=== PATIENT | female | born 1945 | race Caucasian/White ===

== ENCOUNTER 2017-12-28 23:55 | Inpatient (IN) | payer MEDICARE ==
[~2017-12-28] VITALS: Ht 162.6 cm; Wt 71.7 kg
[~2017-12-28 23:55] MED LIST: ALPRAZOLAM 0.50.5 M1 PO; CELEXA40 MG PO; COLESTID1 GM PO; COREG6.25 MG PO; FOSAMAX 70 MG T70 M1; GABAPENTIN 100100 MG PO; GABAPENTIN100 MG; GLUCOPHAGE500 MG PO; NORCO 5-325 TA1 EACH PO; NORVASC 5 MG TAB5 MG PO; OMEGA-31000 M1 PO; OMEPRAZOLE 20 M20 MG; PRAVACHOL 20 MG20 M1 PO; REGLAN 10 MG TA10 MG PO; ROBAXIN500 MG PO; WELLBUTRIN SR150 MG PO; XANAX 1 MG TABLE1 MG PO
[2017-12-29] VITALS (10 sets, daily range): BP systolic 131–192; BP diastolic 62–90
[2017-12-29] MEDS ORDERED: XANAX 0.5 MG0.5 MG PO (00:11)
[2017-12-29] MEDS ORDERED: NAMENDA 10 MG T10 MG PO ×2 (00:12→04:25)
[2017-12-29 01:00] LABS: ABSOLUTE EOSINOPHILS 0.2 thou/uL (0.0-0.7); ABSOLUTE LYMPHOCYTES 2.5 thou/uL (0.8-5.3); ABSOLUTE MONOCYTES 0.6 thou/uL (0.0-1.2); ABSOLUTE NEUTROPHILS 4.8 thou/uL (1.6-8.1); BASOPHILS 0.4 %; EOSINOPHILS 2.7 %; HEMATOCRIT 41.2 % (37.0-47.0); LYMPHOCYTES 30.7 %; MCH 29.6 pg (26.0-34.0); MCHC 33.9 g/dL (28.0-37.0); MCV 87.2 fL (80.0-100.0); MONOCYTES 7.3 %; MPV 7.8 fl. (7.2-11.1); NUCLEATED RBCS 0 /100WBC; PLATELET COUNT* 204 thou/uL (150-400); POLYS 58.9 %; RBC 4.72 mil/uL (4.20-5.00); RDW-CV 12.8 % (10.5-14.5); WBC 8.1 thou/uL (4.0-11.0)
[2017-12-29 01:04] LABS: ANION GAP 5 mmol/L (7-16); BUN 14 mg/dL (7-18); CALCIUM 9.7 mg/dL (8.5-10.1); CHLORIDE 101 mmol/L (98-107); CO2 30 mmol/L (21-32); GLUCOSE 131 mg/dL (70-99); POTASSIUM 4.7 mmol/L (3.5-5.1); SODIUM 136 mmol/L (136-145)
[2017-12-29 01:16] LABS: ALBUMIN 3.8 g/dL (3.4-5.0); ALKALINE PHOSPHATASE 69 U/L (46-116); SGOT 19 U/L (15-37); SGPT 15 U/L (30-65); TOTAL BILIRUBIN 0.4 mg/dL (<0.1-1.0); TOTAL PROTEIN 7.4 g/dL (6.4-8.2); TROPONIN-I LEVEL <0.06 ng/mL (<0.06)
[2017-12-29 04:25] LABS: URINE BILIRUBIN NEGATIVE (Negative); URINE BLOOD NEGATIVE (Negative); URINE CLARITY CLEAR; URINE COLOR STRAW; URINE GLUCOSE-RANDOM NEGATIVE (Negative); URINE KETONES NEGATIVE (Negative); URINE LEUKOCYTES-REFLEX NEGATIVE (Negative); URINE NITRITE-REFLEX NEGATIVE (Negative); URINE PROTEIN NEGATIVE (Negative); URINE SPECIFIC GRAVITY <= 1.005 (1.005-1.030); URINE UROBILINOGEN 0.2 E.U./dl (0.2-1.0)
--- NOTE | 2017-12-29 06:38 | NUR ---
RECEIVED REPORT FROM ER NURSE, MILLIE RN, AT 0315. PT ARRIVED TO UNIT VIA CART AT 0331. PT AAOX4, ORIENTED TO ROOM AND CALL LIGHT. PT DENIES CHEST PAIN, VSS, SCDS IN PLACE, PT TRACING SR ON OPERATIONS LEAD. CALL LIGHT WITHIN REACH.
[2017-12-29 06:53] LABS: ABSOLUTE EOSINOPHILS 0.1 thou/uL (0.0-0.7); ABSOLUTE LYMPHOCYTES 2.2 thou/uL (0.8-5.3); ABSOLUTE MONOCYTES 0.4 thou/uL (0.0-1.2); ABSOLUTE NEUTROPHILS 6.3 thou/uL (1.6-8.1); BASOPHILS 0.3 %; EOSINOPHILS 1.1 %; HEMATOCRIT 41.3 % (37.0-47.0); HEMOGLOBIN 13.8 gm/dL (12.0-15.0); LYMPHOCYTES 24.3 %; MCH 29.4 pg (26.0-34.0); MCHC 33.4 g/dL (28.0-37.0); MCV 88.2 fL (80.0-100.0); MONOCYTES 4.9 %; MPV 8.6 fl. (7.2-11.1); NUCLEATED RBCS 0 /100WBC; PLATELET COUNT* 209 thou/uL (150-400); POLYS 69.4 %; RBC 4.68 mil/uL (4.20-5.00); RDW-CV 12.7 % (10.5-14.5)
[2017-12-29 07:08] LABS: ANION GAP 7 mmol/L (7-16); BUN 10 mg/dL (7-18); CALCIUM 8.9 mg/dL (8.5-10.1); CHLORIDE 106 mmol/L (98-107); CO2 29 mmol/L (21-32); GLUCOSE 115 mg/dL (70-99); POTASSIUM 4.5 mmol/L (3.5-5.1); SODIUM 142 mmol/L (136-145)
[2017-12-29 07:09] LABS: TROPONIN-I LEVEL <0.06 ng/mL (<0.06)
--- NOTE | 2017-12-29 07:30 | NUR ---
0730 ASSUMED CARE OF PT. PLEASE SEE DOCUMENTED ASSESSMENT. PT AXOX4. O2 AT 2L PER NC. HR IN THE 80'S, PT IN SINUS RHYTHM. NPO UNTIL SEEN BY CARDIOLOGY. GOALS THIS SHIFT ARE TO: MONITOR HR, POSSIBLY TX TO TELE, MRI HEAD D/T AMS, AND ULTRASOUND OF CAROTIDS, REST/COMFORT, INCREASE ACTIVITY TOLERATED.
--- NOTE | 2017-12-29 09:10 | NUR ---
DR. TORRES HERE ON THE UNIT. NEW ORDERS RCOctavio'Patricio.
--- NOTE | 2017-12-29 09:40 | NUR ---
PT TO MRI VIA W/CHAIR. QUESTIONNAIRE FILLED OUT. PT WILL HAVE MRI HEAD THEN ULTRASOUND OF THE CAROTIDS.
--- NOTE | 2017-12-29 10:00 | NUR ---
RCV'D CALL FROM MRI, PT UNABLE TO TOLERATE MRI D/T PTSD. PAGED DR. LABOY TO GET SEDATIVE. NEW ORDERS RCV'D. RCV'D CALL BACK FROM [facility] IN MRI, PT NO LONGER WILLING TO COMPLETE MRI. YOU CALL SENT TO DR. LABOY.
--- NOTE | 2017-12-29 13:28 | NUR ---
PT HAS MULTIPLE DIETARY RESTRICTIONS, PLACED UNDER COMMENTS FOR DIETARY TO BE AWARE OF.
--- NOTE | 2017-12-29 13:29 | EKG ---
[place] [address] ELECTROCARDIOGRAM REPORT Name: MAKENZIE LOVELL Room: [address] IN [facility].#: [id number] Admission: 12/29/17 Attend Phys: Jimmie Aguirre, Discharge: Date of : 43 Report #: [id number] THIS REPORT FOR: //name// [facility] ED Test Date: 2017-12-29 Test Time: 00:04:29 Pat Name: MAKENZIE LOVELL Department: Room: [facility] Gender: F Package Liner: UNKNOWN : 1945 Requested By: Theodore Wellington Order Number: [id number] MD: Cecilio France Measurements Intervals Bowler Rate: 76 P: 53 UT: 175 QRS: -2 QRSD: 94 T: 65 QT: 380 QTc: 428 Interpretive Statements Sinus rhythm Compared to ECG 11/05/2016 12:06:03 No significant changes Electronically Signed On 12-29-2017 13:28:56 CDT by Cecilio France [email or web address] <ELECTRONICALLY SIGNED> By: Jazzy France MD, [facility] 12/29/17 1328 0004 0004 Jazzy France MD, [facility] /EPI
--- NOTE | 2017-12-29 15:15 | NUR ---
PT RESTING IN BED WATCHING TV. VOICES NO NEEDS. IVF SALINE LOCKED. UP TO BSC W/STANDBY ASSIST.
--- NOTE | 2017-12-29 16:14 | NUR ---
SB[facility] FAXED TO [facility].
--- NOTE | 2017-12-29 16:55 | NUR ---
PT TRANSFERRED TO ROOM 222 VIA W/CHAIR. ALL BELONGINGS SENT W/PT. REPORT GIVEN TO DAVID OJEDA. PT WILL CONTACT HER FAMILY TO LET THEM KNOW SHE MOVED TO A TELE ROOM.
--- NOTE | 2017-12-29 19:42 | NUR ---
PT ARRIVED TO ROOM 222 AT APPROX 1700. PT ORIENTED TO ROOM AND STAFF. SHE DENIES PAIN AT THIS TIME. REVIEWED PREVIOUS RNS CHARTING, THIS RN AGREES WITH CHARTING OF LETY MAGANA RN. PT USING CALL LIGHT APPROPIRLATY , FALL PRECAUTIONS IN PLACE. REPORT GIVEN TO ONCOMING NIGHT RNSABI.
[2017-12-30 00:10] VITALS: BP 143/62
[2017-12-30 04:00] VITALS: BP 146/68
--- NOTE | 2017-12-30 05:20 | NUR ---
PT CARE ASSUMED AFTER REPORT. ASSESSMENT COMPLETE. SR ON MOITOR. NPO FOR CARDS CONSULT, ECHO, AND STRESS TEST. ALSO NEUROLOGY CONSULT TODAY. CALL LIGHT IN REACH. BED IN LOWEST POSITION. PROGRESSING TOWARDS GOALS.
[2017-12-30 07:30] VITALS: BP 130/68
--- NOTE | 2017-12-30 08:56 | NUR ---
VSS, ASSUMED CARE IN THE AM, ASSESSMENT PERFORMED AND CHARTED, FALL PRECAUTIONS IN PLACE AND CALL LIGHT IN REACH, PT IS A&O4 IS UP WITH ONE, TRACING SR ON THE MONITOR, DENIES ANY PAIN AND HER GOAL IS TO COMPLETE ECHO AND STRSS TEST, WILL FOLLOW WITH PLAN OF CARE.
[2017-12-30 15:15] VITALS: BP 127/65
--- NOTE | 2017-12-30 15:57 | NUR ---
Pt was sound asleep when CM went to assess, will f/u later
--- NOTE | 2017-12-30 17:33 | CARDNUC ---
[place] [address] CARDIAC NUCLEAR IMAGING REPORT Name: MAKENZIE LOVELL Room: [address] IN [facility]#: [id number] Admission: 12/29/17 Attend Phys: Jimmie Richards Discharge: Date of : 43 Date of Service: 12/30/17 1733 Report #: [id number] THIS REPORT FOR: //name// APPROVED REPORT Study performed: 12/29/2017 10:52:00 Exam: Nuclear Stress Test Indication: bradycardia, near syncope Patient Location: In-Patient Room #: 222 Stress Tech: Yanet Hill Stress Nurse: Hiral Buckley RN Ht: 5 ft 4 in Wt: 165 lbs BSA: 1.80 m2 BMI: 28.31 Medical History Medical History: Diabetes, Hyperlipidemia, HTN Medications: amlodipine, atorvastatin, colestipol, asa, ntg Allergies: codeine Cardiac Risk Factors: Age, DM, HTN, Hyperlipidemia Exercise History: Sedentary Stress Test Details Stress Test: Pharmacologic stress testing performed using 0.4 mg of regadenoson per 5 mL given IV over 10 seconds. Reason for pharmacologic stress test: physical limitation. Reversal agent Aminophyline 50 mg, given intravenously for headache. HR Resting HR: 63 bpm Max Heart Rate (APMHR): 147 bpm Max HR Achieved: 103 bpm Target HR (85% APMHR): 124 bpm % of APMHR: 70 Recovery HR: 82 bpm BP Resting BP: 139/80 mmHg Max BP: 146/69 mmHg ECG Resting ECG: Sinus Rhythm, normal EKG Stress ECG: Sinus Rhythm, normal EKG ST Change: [place] [address] CARDIAC NUCLEAR IMAGING REPORT Name: MAKENZIE LOEVLL Room: [address]#: [id number] Admission: 12/29/17 Attend Phys: Jimmie Richards Discharge: Date of : 43 Date of Service: 12/30/17 1733 Report #: [id number] Arrhythmia: None Recovery ECG: Sinus Rhythm, normal EKG Recovery ST Change: None Recovery Arrhythmia: None Clinical Reason for Termination: Completed protocol Stress Symptoms: Nausea, Headache Exercise duration: 0 min sec Exercise capacity: 1.0 METs The patient had some nausea and headache felt to be attributed to Lexiscan. She had no significant chest pain with Lexiscan infusion. Nurse Comments Patient complained of nausea and headache and shaking post lexiscan, 50mg aminophylline IV at 1201. Patient states feels better at 1208. Stress ECG Conclusion The baseline 12-lead electrocardiogram showed normal sinus rhythm with no significant ST or T wave abnormalities. EKGs obtained during and post Lexiscan infusion showed sinus rhythm with no significant Mr. T wave changes when compared to baseline. There were no stress-induced arrhythmias. NM EXAM: Myocardial Perfusion REST/STRESS Imaging Protocol: Rest Tc-99m/Stress Tc-99m 1 day Resting Data Rest SPECT myocardial perfusion imaging was performed in supine position 45 minutes following the intravenous injection of 12 mCi of Tc-99m Sestamibi. Time of rest injection: 1025 Date: 12/30/2017 The images were gated to evaluate regional wall motion and calculate left ventricular ejection fraction. Administration Route: IV Administration Site: [facility] Pharmacologic Stress Pharmacologic stress test was performed by injecting Regadenoson 0.4 mg IV push followed by the intravenous injection of 34.8 mCi of Tc-99m Sestamibi. Time of stress injection: 1200 Date: 12/30/2017 Administration Route: IV Administration Site: [place] [address] CARDIAC NUCLEAR IMAGING REPORT Name: MAKENZIE LOVELL Room: [address]#: [id number] Admission: 12/29/17 Attend Phys: Jimmie Richards Discharge: Date of : 43 Date of Service: 12/30/17 1733 Report #: [id number] Gated Stress SPECT was performed 45 minutes after stress injection. The images were gated to evaluate regional wall motion and calculate left ventricular ejection fraction. Prone imaging was performed. Study Quality Study: Good Artifact: No artifact Study Data At rest, the left ventricular ejection fraction was 78%.. Post stress, the left ventricular ejection was 78%.. TID = 1.10. Perfusion Normal left ventricular perfusion. Wall Motion Normal left ventricular wall motion. Nuclear Conclusion ECG Findings: negative for ischemia Clinical Findings: negative for ischemia Nuclear Findings: negative for ischemia Exercise Capacity: not assessed Left Ventricular Function: normal Risk Study: low Myocardial perfusion images show no defect to suggest infarct or ischemia. Left ventricular systolic function was normal on gated studies. This is a low risk study. <Conclusion> The baseline 12-lead electrocardiogram showed normal sinus rhythm with no significant ST or T wave abnormalities. EKGs obtained during and post Lexiscan infusion showed sinus rhythm with no significant Mr. T wave changes when compared to baseline. There were no stress-induced arrhythmias. <ELECTRONICALLY SIGNED> By: Jae Doran MD, FACC 12/30/17 1733 1733 1733 Jae Doran MD, FACC /INF
--- NOTE | 2017-12-30 17:44 | NUR ---
VSS, PT IS PROGRESSING TOWARDS GOAL, PT IS A&O4 ON RA AND IS UP WITH ONE AND IS TRACING SR ON THE MONITOR, PT DENIES ANY PAIN AND HAS BEEN TO UP CHAIR FOR MEALS, PT HAS COMPLETED ECHO AND STRESS TEST, HOURLY ROUNDS COMPLETED AND WILL FOLLOW WITH END OF SHIFT REPORT, FALL PRECAUTIONS IN PLACE AND CALL LIGHT IN REACH.
[2017-12-30 20:00] VITALS: BP 136/61
[2017-12-31] VITALS: BP 118/56
--- NOTE | 2017-12-31 03:41 | NUR ---
ASSUMED PT CRAE AT 1930, PT IS A&OX4, PT IS TRACING NSR ON THE MONITOR, PT DENIES ANY PAIN OR NEEDS AT THIS TIME, PT IS UP STB TO THE BR. BED IN LOW POSITION, CALL LIGHT IN REACH, BED ALARM ON, PT REFUSED HER XANAX THIS SHFIT, STATED SHE DID NOT NEED IT AT THIS TIME. PT SLEPT ON AND OFF THOUGHOUT THE SHIFT. HOURLY ROUNDING COMPELTED FOR PT SAFETY.
[2017-12-31 04:00] VITALS: BP 142/70
--- NOTE | 2017-12-31 07:45 | 2DMMODE ---
[place] [address] 2 D/M-MODE ECHOCARDIOGRAM Name: MAKENZIE LOVELL Room: [address] IN [facility]#: [id number] Admission: 12/29/17 Attend Phys: Jimmie Richards Discharge: Date of : 43 Date of Service: 12/30/17 1715 Report #: [id number] THIS REPORT FOR: //name// APPROVED REPORT Study performed: 12/30/2017 11:37:50 EXAM: Comprehensive 2D, Doppler, and color-flow Echocardiogram Patient Location: In-Patient Room #: 008 Status: routine BSA: 1.80 HR: 72 bpm BP: 130/68 mmHg Rhythm: NSR Other Information Study Quality: Good Indications Bradycardia Chest Pain Near syncope 2D Dimensions LVEF(%): 78.91 (>50%) IVSd: 13.80 (7-11mm) LVOT Diam: 17.67 (18-24mm) LVDd: 37.65 mm PWd: 10.82 (7-11mm) Ascending Ao: 27.96 (22-36mm) LVDs: 20.03 (25-40mm) Aortic Root: 25.61 mm Aguilar's LVEF: 78.91 % Volumes Left Atrial Volume (Systole) LA ESV Index: 22.60 mL/m2 Aortic Valve AoV Peak Juan.: 1.55 m/s AO Peak Gr.: 9.64 mmHg LVOT Max P.18 mmHg AO Mean Gr.: 5.46 mmHg LVOT Mean P.12 mmHg LVOT Max V: 1.60 m/s AO V2 VTI: 34.68 cm LVOT Mean V: 1.04 m/s KENJI (VTI): 2.69 cm2 LVOT V1 VTI: 38.08 [place] [address] 2 D/M-MODE ECHOCARDIOGRAM Name: MAKENZIE LOVELL Room: [address] IN [facility]#: [id number] Admission: 12/29/17 Attend Phys: Jimmie Richards Discharge: Date of : 43 Date of Service: 12/30/17 1715 Report #: [id number] Mitral Valve E/A Ratio: 0.85 MV Decel. Time: 250.70 ms MV E Max Juan.: 0.96 m/s MV PHT: 72.70 ms MVA (PHT): 3.03 cm2 TDI E/Lateral E': 8.73 E/Medial E': 10.67 Medial E' Juan.: 0.09 m/s Lateral E' Juan.: 0.11 m/s Pulmonary Valve PV Peak Juan.: 0.95 m/s PV Peak Gr.: 3.59 mmHg Tricuspid Valve TR Peak Gr.: 25.03 mmHg RVSP: 30.00 mmHg Left Ventricle The left ventricle is normal size. There is normal LV segmental wall motion. There is normal left ventricular wall thickness Left ventricular systolic function is normal. The left ventricular ejection fraction is within the normal range. LVEF is 60-65%. Grade I - abnormal relaxation pattern. Right Ventricle The right ventricle is normal size. The right ventricular systolic function is normal. Atria The left atrium size is normal. The right atrium size is normal. Aortic Valve Mild aortic valve sclerosis. No aortic regurgitation is present. There is no aortic valvular stenosis. Mitral Valve There is mitral annular calcification. There is no mitral valve regurgitation noted. No evidence of mitral valve stenosis. Tricuspid Valve The tricuspid valve is normal in structure. Trace tricuspid regurgitation. The RVSP is 30-35 mmHg[place] [address] 2 D/M-MODE ECHOCARDIOGRAM Name: MAKENZIE LOVELL Aldo Room: [address]#: [id number] Admission: 12/29/17 Attend Phys: Jimmie Richards Discharge: Date of : 43 Date of Service: 12/30/17 1715 Report #: [id number] The pulmonary valve is normal in structure. There is no pulmonic valvular regurgitation. Great Vessels The aortic root is normal in size. IVC is normal in size and collapses with >50% inspiration Pericardium There is no pericardial effusion. <Conclusion> The left ventricle is normal size. There is normal left ventricular wall thickness Left ventricular systolic function is normal. The left ventricular ejection fraction is within the normal range. LVEF is 60-65%. Grade I - abnormal relaxation pattern. The right ventricle is normal size. The left atrium size is normal. Mild aortic valve sclerosis. No aortic regurgitation is present. There is no aortic valvular stenosis. There is mitral annular calcification. There is no mitral valve regurgitation noted. No evidence of mitral valve stenosis. The tricuspid valve is normal in structure. Trace tricuspid regurgitation. The RVSP is 30-35 mmHg. IVC is normal in size and collapses with >50% inspiration There is no pericardial effusion. There is normal LV segmental wall motion. <ELECTRONICALLY SIGNED> By: Ritchie Eugene MD, FACC 12/30/17 1715 171 [id number] Ritchie Eugene MD, FACC /INF
--- NOTE | 2017-12-31 08:00 | CON ---
[address] [address] CONSULTATION Name: MAKENZIE LOVELL Room: [address] IN ..#: [id number] Admission: 12/29/17 Attend Phys: Jimmie Aguirre, Discharge: Date of : 43 Report #: [id number] THIS REPORT FOR: //name// CC: RUDY physician/PCP Jimmie Aguirre DATE OF SERVICE: 12/29/2017 HISTORY OF PRESENT ILLNESS: I was asked by Dr. Aguirre to see this 72-year-old white female in cardiology consultation for evaluation and treatment of a bradycardic episode that occurred in the ER last night. This lady came to the ER after having started memantine or Namenda on last Saturday for memory loss. She has also had difficulty thinking straight. She has had a lot of anxiety. She does have a history of depression. She came to the ER because she was feeling dizzy and confused. She had a discomfort in the back of her head. She was having some flashbacks and memory loss. She does have issues with PTSD, anxiety and depression. In addition to the Namenda, she takes alprazolam 0.5 mg t.i.d. and Wellbutrin 300 mg daily. She also takes Celexa 40 mg daily. In the ER, she was hypertensive. I believe her systolic blood pressure was 190, but I believe was 190/90 was her blood pressure. She does have a history of high blood pressure. She was given nitroglycerin for her high blood pressure and then shortly after getting the nitroglycerin, developed bradycardia. It is not clear that how much she dropped her blood pressure, but she did feel lightheaded and thought she might be going to faint, but she did not faint. She does have a history of multiple episodes of syncope that sound like vasovagal syncope as a teenager. Her EKG was normal. She has not had any troponin elevations. She has not had any further bradycardic episodes. She felt her heart was racing. Additionally, they brought her to the hospital, but she did not have any tachycardia in the ER. She has had negative troponins x 3. Her chest x-ray was normal. A CT of the head was unremarkable as well. That was without contrast. She apparently had a CTA of the chest that was normal also. Her main complaint when she came in the ER was in fact dizziness as well as confusion. She said her right arm was tingling as well. She says she has been under a lot of stress. She was particularly under a lot of stress the day she came in the hospital. She did not have any chest pain or angina. She does have mild dyspnea on exertion, but not inappropriate she says for her level of activity in general condition. She has not had shortness of breath at rest, orthopnea or PND. Occasionally, she gets a little edema above her socks, but nothing otherwise, it is always gone the next day. She has had the dizziness and weakness that occurred last night, but no syncope or near syncope, otherwise. Cardiac risk factors include hypercholesterolemia, but she is on pravastatin. She has not been a smoker. She does have non-insulin dependent diabetes mellitus and high blood pressure. There is family history of TIAs and CVAs, but not clearly heart issues that is not clearly MIs or angina or heart failure. She has not had renal disease. She has not had carotid disease or TIAs or CVAs. She does get pain in her legs when she walks, but it sounds like it is more [facility] [address] [place] [address] CONSULTATION Name: MAKENZIE LOVELL Room: [address]#: [id number] Admission: 12/29/17 Attend Phys: Jimmie Aguirre, Discharge: Date of : 43 Report #: [id number] like arthritis and not claudication. She has had no previous cardiac problems. She has had the above-mentioned psychiatric issues. She does have a history of gastroparesis. She has had a cholecystectomy, tonsillectomy and a throat polyp removed. ALLERGIES: SHE DOES HAVE SEASONAL ALLERGIES AND IS ALLERGIC TO CODEINE. HOME MEDICATIONS: Include alprazolam as above, amlodipine 5 mg daily, Wellbutrin as above, carvedilol 6.25 mg b.i.d., citalopram or Celexa 40 mg daily, colestipol 2 grams b.i.d. for diarrhea, gabapentin 100 mg b.i.d., Namenda 10 mg b.i.d., metformin 500 mg b.i.d. and pravastatin 20 mg daily. REVIEW OF SYSTEMS: Positive for cough, sputum production, shortness of breath with exercise, feeling weak and dizzy but no real syncope, diabetes, gastroparesis, SEASONAL ALLERGIES, CODEINE ALLERGY, PTSD with anxiety and depression, arthritis, dry itchy skin, wearing glasses, decreased hearing, wearing dentures. She says her teeth are in bed condition. Otherwise, review of systems is negative for some 30 different complaints in 14 different system categories including central nervous system, general, respiratory, cardiovascular, endocrine, gastrointestinal, genitourinary, hematologic, lymphatic, allergic, immunologic, psychiatric, musculoskeletal, skin, eyes, ears, nose, mouth, and throat. Please see review of systems form. SOCIAL HISTORY: She is . 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 She does not smoke, drink or use illegal drugs. FAMILY HISTORY: Remarkable for TIAs in her mother and her grandmother did suddenly. PHYSICAL EXAMINATION: GENERAL: She presents as a well-developed, well-nourished white female in no acute distress. VITAL SIGNS: Her pulse was 67, blood pressure is 144/62, respirations 18 and regular, temperature was 98.4. HEENT: Head was atraumatic. Eyes clear. NECK: Supple. There is no jugular venous distention or hepatojugular reflux. Thyroid is not enlarged. There is no adenopathy. SKIN: Warm and dry. Mucous membranes are moist. LUNGS: Clear to auscultation and percussion. HEART: Revealed normal first and second heart sound. There is soft S4. There is no S3. There are no murmurs, rubs, thrills, heaves or gallops. PMI is nondisplaced. ABDOMEN: Soft, flat, nontender, no palpable masses, no organomegaly. EXTREMITIES: Reveal no cyanosis, clubbing or edema. NEUROLOGIC: The patient mentated normally, talked normally and [place] [address] CONSULTATION Name: MAKENZIE LOVELL Aldo Room: [address]#: [id number] Admission: 12/29/17 Attend Phys: Jimmie Aguirre, Discharge: Date of : 43 Report #: [id number] IMPRESSION: 1. Bradycardia that was likely a vasovagal episode. 2. Essential hypertension. 3. Non-insulin dependent diabetes mellitus. 4. Anxiety and depression. 5. Hypercholesterolemia. 6. Memory loss. 7. Probable drug reaction to Namenda or memantine. RECOMMENDATION: Please see my orders. I would check a stress test and echo and get an outpatient CardioNet monitor for 30 days. I would consider a tilt table here, but it may not be necessary given the fairly classic sounding history here. Thank you very much for asking me to see the patient. If there are any questions, please feel free to contact me. <ELECTRONICALLY SIGNED> By: Jazzy France MD, FACC 12/31/17 0800 [id number]. Cecilio France MD, FACC /nt
[2017-12-31 08:30] VITALS: BP 137/57
--- NOTE | 2017-12-31 10:19 | NUR ---
ASSUMED CARE OF PT AT 0730. PT RESTING IN BED WAITING FOR BREAKFAST. PT A&0X4. DENIES ANY PAIN OR SHORTNESS OF BREATH AT THIS TIME. PT STATES SHE FEELS SHAKY BUT OTHERWISE GOOD AND READY TO GO HOME. 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 VSS. ON RA SAT 95%. PT UP SBA TO BATHROOM. CARDIOLOGY SIGNED OFF. ECHO AND STRESS TEST COMPLETED. PT TO GO HOME WITH OUTPT CARDIONET MONITOR FOR 30 DAYS. PT GOAL IS TO DISCHARGE HOME TODAY. PROGRESSING TOWARDS GOALS WELL. AM ASSESSMENT CHARTED. MEDICATIONS PER NOV. PT REPOSITIONS SELF. HOURLY ROUNDING OBSERVED. BED IN LOW POSITION. CALL LIGHT WITHIN REACH. WILL CONTINUE PLAN OF CARE.
[2017-12-31 11:58] VITALS: BP 137/72
[2017-12-31 12:40] VITALS: BP 137/72
--- NOTE | 2017-12-31 13:55 | NUR ---
CM SPOKE TO THE PATIENT TO DISCUSS HOME SITUATION, DISCHARGE PLANNING, AND TO INFORM OF THE ROLE OF CM. PATIENT ALERT, ORIENTED, AND INDEPENDENT WITH ADL'S. 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 PATIENT RESIDES AT HOME WITH SPOUSE. PATIENT USES A CPAP AT HOME. PATIENT HAS NO HX OF HH OR SNF, AND PLANS TO GO HOME TODAY. PATIENT PATIENT'S PCP IS DR BOJORQUEZ. CM WILL REMAIN AVAILABLE TO ASSIST AND FOLLOW NEEDED.
--- NOTE | 2017-12-31 14:44 | NUR ---
DISCHARGE ORDERS RECEIVED. DISCHARGE INSTRUCTIONS, CARE NOTES AND FOLLOW UP APPTS GIVEN TO PT. PT COMMUNICATES UNDERSTANDING OF DISCHARGE TEACHING. IV AND CHANGE AGENT REMOVED. PT DISCHARGED WITH ALL BELONGINGS AND PAPERWORK VIA WHEELCHAIR AND NURSING STAFF TO HUSBANDS OWN PERSONAL VEHICLE.
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
== END 2017-12-31 14:18 | disposition home or self-care (01) | DRG 304 ==
LOC: M.ERS 23:55 → M.2W 12-29 02:37 → M.TBA-ER 12-29 02:37 → M.ICU 12-29 03:23 → M.2W 12-29 16:55
PROVIDERS: Emergency Medicine Emergency Medical Services; Internal Medicine; ADMIT Family Medicine
PROC: B24BZZ4 Ultrasonography of Heart with Aorta, Transesophageal (ICD-10-PCS; principal; 2017-12-30)
DX: I16.0 Hypertensive urgency (principal); G93.41 Metabolic encephalopathy; I12.9 Hypertensive chronic kidney disease with stage 1 through stage 4 chronic kidney disease, or unspecified chronic kidney disease; F32.9 Major depressive disorder, single episode, unspecified; N18.3 Chronic kidney disease, stage 3 (moderate); F41.9 Anxiety disorder, unspecified; E11.22 Type 2 diabetes mellitus with diabetic chronic kidney disease; E78.00 Pure hypercholesterolemia, unspecified; R41.3 Other amnesia; F43.10 Post-traumatic stress disorder, unspecified; Z90.49 Acquired absence of other specified parts of digestive tract; Z87.81 Personal history of (healed) traumatic fracture; Z79.84 Long term (current) use of oral hypoglycemic drugs; Z79.899 Other long term (current) drug therapy; Z88.5 Allergy status to narcotic agent; Z82.3 Family history of stroke

== ENCOUNTER → 2018-03-31 | Outpatient (CLI) | payer MEDICARE ==
[~2018-03-31] MED LIST changes: +NAMENDA 10 MG T10 MG PO; +XANAX 0.5 MG0.5 MG PO
[2018-03-31 15:54] LABS: CHOLESTEROL 139 mg/dL (<200); HDL CHOLESTEROL 61 mg/dL (>40); LDL CHOLESTEROL 61 mg/dL (<100); TC:HDL 2.3 Ratio (Not establshd); TRIGLYCERIDE 87 mg/dL (<150); VLDL 17 mg/dL (<40)
[2018-03-31 15:56] LABS: SERUM ASSESSMENT Clear
== END ==
LOC: M.LAB 15:22
PROVIDERS: Psychiatry & Neurology Neuromuscular Medicine
DX: I65.29 Occlusion and stenosis of unspecified carotid artery (principal); F41.9 Anxiety disorder, unspecified; R53.82 Chronic fatigue, unspecified; R26.9 Unspecified abnormalities of gait and mobility; R41.3 Other amnesia

== ENCOUNTER 2020-02-28 16:43 | Emergency (ER) | payer MEDICARE ==
[~2020-02-28] VITALS: Ht 162.6 cm; Wt 74.8 kg
[2020-02-28] MEDS ORDERED: FLUOXETINE HCL40 MG PO (17:05)
[2020-02-28] MEDS ORDERED: OMEPRAZOLE 20 M20 M1 PO (17:05)
[2020-02-28 17:20] LABS: ABSOLUTE EOSINOPHILS 0.1 thou/uL (0.0-0.7); ABSOLUTE MONOCYTES 0.5 thou/uL (0.0-1.2); ABSOLUTE NEUTROPHILS 3.9 thou/uL (1.6-8.1); BASOPHILS 0.4 %; EOSINOPHILS 2.3 %; HEMATOCRIT 38.1 % (37.0-47.0); LYMPHOCYTES 29.9 %; MCV 85.2 fL (80.0-100.0); MONOCYTES 7.5 %; MPV 7.5 fl. (7.2-11.1); NUCLEATED RBCS 0 /100WBC; PLATELET COUNT* 205 thou/uL (150-400); POLYS 59.9 %; RBC 4.47 mil/uL (4.20-5.00); RDW-CV 13.9 % (10.5-14.5); WBC 6.5 thou/uL (4.0-11.0)
[2020-02-28 17:29] LABS: CALCIUM 8.6 mg/dL (8.5-10.1); POTASSIUM 3.8 mmol/L (3.5-5.1)
[2020-02-28 17:32] LABS: APTT 26.5 Seconds (25.0-31.3); INR 1.1; PROTIME 10.9 Seconds (9.20-11.50)
[2020-02-28 17:39] LABS: ALBUMIN 3.6 g/dL (3.4-5.0); TOTAL BILIRUBIN 0.6 mg/dL (<0.1-1.0); TOTAL PROTEIN 7.2 g/dL (6.4-8.2)
[2020-02-28 18:10] LABS: URINE BILIRUBIN NEGATIVE (Negative); URINE BLOOD NEGATIVE (Negative); URINE CLARITY CLEAR; URINE COLOR YELLOW; URINE GLUCOSE-RANDOM NEGATIVE (Negative); URINE KETONES NEGATIVE (Negative); URINE LEUKOCYTES-REFLEX NEGATIVE (Negative); URINE NITRITE-REFLEX NEGATIVE (Negative); URINE PROTEIN NEGATIVE (Negative); URINE UROBILINOGEN 0.2 E.U./dl (0.2-1.0)
[2020-02-28] MEDS ORDERED: MOTION RELIEF25 MG PO (18:16)
[2020-02-28 18:35] VITALS: BP 158/93
--- NOTE | 2020-02-29 14:54 | EKG ---
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1945 Requested By: Louie Garcia Order Number: [id number] MD: Mario Deras Measurements Intervals [place] Rate: 64 P: 47 [place]: 168 QRS: -9 QRSD: 89 T: 68 QT: 413 QTc: 426 Interpretive Statements Sinus rhythm Low voltage, precordial leads Baseline wander in lead(s) II Compared to ECG 12/29/2017 00:04:29 no change Electronically Signed On 02-29-2020 14:52:57 CDT by Mario Deras [email or web address] <ELECTRONICALLY SIGNED> By: Mario Deras MD, [facility] 02/29/20 1452 1701 1701 Mario Deras MD, [facility] /EPI
== END 2020-02-28 18:37 | disposition home or self-care (01) ==
LOC: M.ERS 16:43
PROVIDERS: Family Medicine
DX: R42 Dizziness and giddiness (principal); I10 Essential (primary) hypertension; E11.9 Type 2 diabetes mellitus without complications; Z88.5 Allergy status to narcotic agent; Z79.899 Other long term (current) drug therapy; Z90.49 Acquired absence of other specified parts of digestive tract; Z98.49 Cataract extraction status, unspecified eye

== ENCOUNTER 2021-09-06 06:01 | Emergency (ER) | payer MEDICARE ==
[~2021-09-06] VITALS: Ht 162.6 cm; Wt 73.5 kg
[~2021-09-06 06:01] MED LIST changes: +FLUOXETINE HCL40 MG PO; +MOTION RELIEF25 MG PO; +OMEPRAZOLE 20 M20 M1 PO
[2021-09-06] MEDS ORDERED: KEFLEX250 MG PO (06:37)
[2021-09-06 06:44] VITALS: BP 142/79
== END 2021-09-06 06:44 | disposition home or self-care (01) ==
LOC: M.ERS 06:01
DX: L03.032 Cellulitis of left toe (principal); E11.9 Type 2 diabetes mellitus without complications; I10 Essential (primary) hypertension; E78.5 Hyperlipidemia, unspecified; F32.9 Major depressive disorder, single episode, unspecified; F41.9 Anxiety disorder, unspecified; Z98.890 Other specified postprocedural states; Z88.5 Allergy status to narcotic agent; Z88.8 Allergy status to other drugs, medicaments and biological substances

== ENCOUNTER 2021-09-25 20:48 | Emergency (ER) | payer MEDICARE ==
[~2021-09-25] VITALS: Ht 162.6 cm; Wt 72.6 kg
[~2021-09-25 20:48] MED LIST changes: +KEFLEX250 MG PO
[2021-09-26] MEDS ORDERED: MUCINEX1200 MG PO (00:58)
[2021-09-26] MEDS ORDERED: PREDNISONE 20 M20 MG PO (00:58)
[2021-09-26 01:04] VITALS: BP 156/71
== END 2021-09-26 01:04 | disposition home or self-care (01) ==
LOC: M.ERS 20:48
DX: J06.9 Acute upper respiratory infection, unspecified (principal); J02.9 Acute pharyngitis, unspecified; R42 Dizziness and giddiness; I10 Essential (primary) hypertension; F32.9 Major depressive disorder, single episode, unspecified; F41.9 Anxiety disorder, unspecified; E11.43 Type 2 diabetes mellitus with diabetic autonomic (poly)neuropathy; K31.84 Gastroparesis; Z98.890 Other specified postprocedural states; Z79.2 Long term (current) use of antibiotics; Z79.899 Other long term (current) drug therapy; Z88.5 Allergy status to narcotic agent; Z88.8 Allergy status to other drugs, medicaments and biological substances

== ENCOUNTER 2021-10-12 09:25 | Emergency (ER) | payer MEDICARE ==
[~2021-10-12] VITALS: Ht 162.6 cm; Wt 68.5 kg
[~2021-10-12 09:25] MED LIST changes: +MUCINEX1200 MG PO; +PREDNISONE 20 M20 MG PO
--- NOTE | 2021-10-12 11:20 | EKG ---
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 : 1945 Requested By: Donn Rico Order Number: [id number] MD: Ritchie Eugene Measurements Intervals [place] Rate: 76 P: 108 MD: 172 QRS: 188 QRSD: 93 T: 116 QT: 387 QTc: 436 Interpretive Statements Right and left arm electrode reversal, interpretation assumes no reversal Sinus rhythm Right axis deviation Borderline low voltage, extremity leads Compared to ECG 02/28/2020 17:01:23 Right-axis deviation now present T-wave abnormality now present lead reversal has occurred Electronically Signed On 10-12-2021 11:20:31 [employer]AL WIRE TECHNICIAN by Ritchie Eugene [email or web address] <ELECTRONICALLY SIGNED> By: Ritchie Eugene MD, [facility] 10/12/21 1120 0932 0932 Ritchie Eugene MD, F[facility] /EPI
[2021-10-12 11:45] LABS: HEMATOCRIT 41.3 % (37.0-47.0); HEMOGLOBIN 13.7 gm/dL (12.0-15.0); MCV 86.1 fL (80.0-100.0); WBC 10.7 thou/uL (4.0-11.0)
[2021-10-12 11:46] LABS: ABSOLUTE NEUTROPHILS 8.5 thou/uL (1.6-8.1); MCH 28.5 pg (26.0-34.0); MCHC 33.1 g/dL (28.0-37.0); MPV 8.1 fl. (7.2-11.1); PLATELET COUNT* 224 thou/uL (150-400); PLATELET ESTIMATE ADEQUATE; POLYS 79.3 %; RDW-CV 13.6 % (10.5-14.5)
[2021-10-12 11:47] LABS: ABSOLUTE EOSINOPHILS 0.1 thou/uL (0.0-0.7); ABSOLUTE LYMPHOCYTES 1.7 thou/uL (0.8-5.3); ABSOLUTE MONOCYTES 0.4 thou/uL (0.0-1.2); BASOPHILS 0.3 %; EOSINOPHILS 0.6 %; LYMPHOCYTES 15.6 %; MONOCYTES 4.2 %
[2021-10-12 12:03] LABS: NUCLEATED RBCS 0 /100WBC
[2021-10-12 12:11] LABS: CALCIUM 9.2 mg/dL (8.5-10.1); POTASSIUM 4.2 mmol/L (3.5-5.1)
[2021-10-12 12:15] LABS: ALBUMIN 3.9 g/dL (3.4-5.0); TOTAL BILIRUBIN 0.6 mg/dL (<0.1-1.0); TOTAL PROTEIN 7.8 g/dL (6.4-8.2)
[2021-10-12 14:41] LABS: URINE BILIRUBIN NEGATIVE (Negative); URINE BLOOD NEGATIVE (Negative); URINE CLARITY CLEAR; URINE COLOR YELLOW; URINE GLUCOSE-RANDOM NEGATIVE (Negative); URINE KETONES NEGATIVE (Negative); URINE LEUKOCYTES NEGATIVE (Negative); URINE NITRITE NEGATIVE (Negative); URINE PROTEIN NEGATIVE (Negative); URINE SPECIFIC GRAVITY 1.015 (1.005-1.030); URINE UROBILINOGEN 0.2 E.U./dl (0.2-1.0)
[2021-10-12 14:51] VITALS: BP 156/86
== END 2021-10-12 14:52 | disposition home or self-care (01) ==
LOC: M.ERS 09:25
PROVIDERS: Emergency Medicine
DX: F02.80 Dementia in other diseases classified elsewhere, unspecified severity, without behavioral disturbance, psychotic disturbance, mood disturbance, and anxiety (principal); Z20.822 Contact with and (suspected) exposure to COVID-19; I10 Essential (primary) hypertension; E11.9 Type 2 diabetes mellitus without complications; F32.9 Major depressive disorder, single episode, unspecified; F41.9 Anxiety disorder, unspecified; Z90.49 Acquired absence of other specified parts of digestive tract; Z86.16 Personal history of COVID-19; Z98.890 Other specified postprocedural states; Z79.84 Long term (current) use of oral hypoglycemic drugs; Z79.899 Other long term (current) drug therapy; Z88.5 Allergy status to narcotic agent; Z88.8 Allergy status to other drugs, medicaments and biological substances